=== PATIENT | female | born 1995 | race Caucasian/White ===

== ENCOUNTER 2017-05-06 10:04 | Emergency (ER) | payer BC ==
[2017-05-06] MEDS ORDERED: SODIUM CHLORIDE 0.9% 1000ML 1,000 ML IV ONE (10:34)
[2017-05-06] MEDS ORDERED: ONDANSETRON HCL 4 MG/2 ML 4 MG in SODIUM CHLORIDE 0.9% 100 ML 100 ML IV ONE ×2 (10:34→10:50)
[2017-05-06] MEDS ORDERED: HYDROMORPHONE 1 MG/ML SYRINGE IV ONE (10:35)
[2017-05-06] MEDS ORDERED: ONDANSETRON HCL 4 MG/2 ML SOL ONE ×2 (10:51→13:28)
[2017-05-06] MEDS ORDERED: ONDANSETRON HCL 4 MG/2 ML SOL IV ONE ×2 (10:51→13:20)
[2017-05-06] MEDS ORDERED: HYDROMORPHONE 1 MG/ML SYRINGE ONE (10:51)
[2017-05-06 11:08] VITALS: TEMP 98.6
[2017-05-06 11:12] LABS: HEMATOCRIT 41 % (35-47); MEAN CORPUSCULAR HGB CONC 35.9 gm/dl (32.0-36.0); MEAN CORPUSCULAR VOLUME 88 fL (81-99)
[2017-05-06 11:24] LABS: ALBUMIN 4.4 gm/dl (3.4-5.0); CALCIUM 8.9 mg/dl (8.5-10.1)
[2017-05-06 11:41] LABS: BASOPHILS % (MANUAL) 0 % (0-3); EOSINOPHILS % (MANUAL) 0 % (0-9); LYMPHOCYTES % (MANUAL) 9 % (10-50); NORMAL RBCS PRESENT
[2017-05-06 12:09] LABS: APPEARANCE,URINE Clear; BILIRUBIN,URINE NEGATIVE (NEGATIVE); COLOR,URINE Yellow; GLUCOSE, URINE (UA) NEGATIVE (NEGATIVE); KETONES,URINE 3+ (NEGATIVE); LEUKOCYTE ESTERASE ,URINE NEGATIVE (NEGATIVE); NITRATE,URINE NEGATIVE (NEGATIVE); OCCULT BLOOD,URINE NEGATIVE (NEG-TRACE); PH,URINE 6.5; UROBILINOGEN,URINE 0.2 (0.2-1.0 EU)
[2017-05-06 12:25] LABS: RBC,URINE NEGATIVE (0-3AV/HPF); WBC,URINE 0-1 (0-5AV/HPF)
[2017-05-06] MEDS ORDERED: PIPERACILLIN/TAZOBACT 3.375 GM 3.375 GM in SODIUM CHLORIDE 0.9% 100 ML 100 ML IV ONE (12:28)
[2017-05-06] MEDS ORDERED: PIPERACILLIN/TAZOBACT 3.375 GM PDS IV ONE (12:31)
[2017-05-06 13:06] VITALS: BP 129/81; PULSE 88; RESP 20; O2SAT 98
== END 2017-05-06 13:51 | disposition short-term general hospital (02) ==
LOC: ED 10:04
DX: K35.3 Acute appendicitis with localized peritonitis (principal)
CPT/HCPCS: 36415; 74177; 80053; 81001; 84703; 85007; 85027; 87088; 96365; 96366; 96374; 96375; 99284; 99285; J2405; J2543; Q9967; J1170